=== PATIENT | male | born 1985 | race Caucasian/White ===

== ENCOUNTER 2019-10-20 23:55 | Emergency (ER) | payer BC ==
[2019-10-21] MEDS ORDERED: ACETAMINOPHEN 500 MG TABLET PO ONE (00:02)
[2019-10-21] MEDS ORDERED: 0.9 % SODIUM CHLORIDE 1,000 ML BAG IV ONE (00:03)
--- NOTE | 2019-10-21 00:08 | Emergency Department Record ---
History of Present Illness - General Chief Complaint: Palpitations Stated Complaint: PALPITATIONS Time Seen by Provider: 10/21/19 00:01 Source: Patient Mode of Arrival: EMS Limitations: No limitations - History of Present Illness Initial Comments: 34 yo male presents with palpitations. The patient states he felt normal throughout the day. He went out this even. He had a [employer] power drink prior to going out. He had three bears socializing tonight. On his way home he developed some headache, upset stomach, and a feeling of a few rapid heart jeff ts. He got home and relaxed and felt like he was having a rapid heart rate. He has a mild cough. He denies any underlying medical history. No known cardiac disease. No syncope. No premature disease in the family. No sudden cardiac in the family. He reports he had a Holter monitor last year in [place]. He was told it was normal. MD Complaint: Palpitations, "Skipped beats" -: Hour(s) Context: Occurred during rest Arrythmia History: Other (History of palpitations) Associated Symptoms: Denies other symptoms - Related Data Home Medications Medication Instructions Recorded Confirmed Last Taken No Home Med [NO HOME MEDS] 10/20/19 10/20/19 Unknown Allergies Allergy/AdvReac Type Severity Reaction Status Date / Time No Known Drug Allergies Allergy Verified 10/20/19 23:57 Review of Systems Constitutional: Denies: Chills, Fever, Malaise, Weakness Eyes: Denies: Eye discharge ENT: Reports: Congestion Respiratory: Reports: Cough (mild) Cardiovascular: Reports: Palpitations. Denies: Chest pain, Dyspnea on exertion, Edema, Syncope Endocrine: Denies: Fatigue, Polydipsia, Polyuria Gastrointestinal: Reports: Abdominal pain. Denies: Diarrhea, Nausea, Vomiting Genitourinary: Denies: Dysuria, Frequency, Hematuria Musculoskeletal: Denies: Arthralgia, Back pain, Myalgia Skin: Denies: Bruising, Change in color Neurological: Denies: Confusion, Headache, Numbness, Weakness Psychiatric: Denies: Anxiety Hematological/Lymphatic: Denies: Easy bleeding, Easy bruising Physical Exam - General General Appearance: Alert, Oriented x3, Cooperative, No acute distress Limitations: No limitations - Head Head exam: Atraumatic, Normal inspection - Eye Eye exam: Normal appearance, PERRL. negative: Conjunctival injection, Scleral icterus - ENT ENT exam: Normal exam, Mucous membranes moist, Normal external ear exam Ear exam: Normal external inspection Nasal Exam: Normal inspection Mouth exam: Normal external inspection - Neck Neck exam: Normal inspection - Respiratory Respiratory exam: Normal lung sounds bilaterally. negative: Accessory muscle use, Decreased breath sounds, Prolonged expiratory, Rhonchi, Stridor, Wheezes - Cardiovascular Cardiovascular Exam: Normal rhythm, Tachycardia (HR about 100-105). negative: Diastolic murmur, Irregular rhythm, Systolic murmur Peripheral Pulses: 2+: Radial (R), Radial (L) - GI/Abdominal GI/Abdominal exam: Soft. negative: Tenderness - Rectal Rectal exam: Deferred - exam: Deferred - Extremities Extremities exam: Normal inspection. negative: Pedal edema, Tenderness - Back Back exam: Denies: CVA tenderness (R), CVA tenderness (L) - Neurological Neurological exam: Alert, Oriented X3. negative: Altered, Motor sensory deficit - Psychiatric Psychiatric exam: Normal affect, Normal mood. negative: Agitated, Anxious - Skin Skin exam: Dry, Intact, Normal color, Warm Course Vital Signs 10/21/19 00:01 Temperature 100.2 F H Pulse Rate [ 92 H [employer] ] Respiratory 20 Rate Blood Pressure 136/87 [Right Arm] Pulse Ox 100 - Reevaluation(s) Reevaluation #1: 10/21/19 00:14 EKG #1: 00:05 Rate: 103 Rhythm: sinus with a single PVC Rowdy: normal Intervals: normal ST segments: no acute abnormalities Prior: EMS EKG at 23:34 sinus rhythm rate 121, normal intervals, normal axis, normal ST segments, otherwise normal 10/21/19 00:14 10/21/19 00:17 The CBC is normal 10/21/19 00:34 The CMP was reviewed The K is normal but on the lower side. Given the PVC on the EKG, KCL was ordered while monitoring. The magnesium is normal 10/21/19 00:35 The Troponin and calcium are normal The Influenza are normal (Checked due to low grade temperature and cough) 10/21/19 00:52 The CXR was read as normal. No enlargement. Resting comfortably. No symptoms. HR 85. No current signs of PVCs 10/21/19 01:16 TSH is normal 10/21/19 01:34 No complaints. NSR. No ectopy, no PVCs. rate 82. 10/21/19 02:57 The repeat troponin is normal The patient will be referred as an outpatient to the cardiology clinic We discussed avoid caffeine, close follow up and reasons for immediate return to the ED Medical Decision Making - Lab Data Result diagrams: 10/21/19 00:07 10/21/19 00:07 Disposition Disposition: Discharge Clinical Impression: Palpitations, PVC (premature ventricular contraction) Disposition: Home, Self-Care Condition: (1) Good Instructions: Heart Palpitations (ED) Additional Instructions: Review this ER visit and the tests performed with your family doctor Call your doctor for the next available follow up appointment Return to the ER for a recheck immediately if worse, any new concerns or questions You have been referred to the Cardiology Clinic at [facility] for the palpitations Avoid caffeine Referrals: Romina Perdue M.D. [MEDICAL DOCTOR] - [facility] Specialty Clin[facility] [Provider Group] Forms: Patient Portal Access Time of Disposition: 02:58 Quality - Quality Measures Quality Measures: N/A - Blood Pressure Screening Does Patient Have Any of the Following: No Blood Pressure Classification: Pre-Hypertensive BP Reading Systolic Measurement: 136 Diastolic Measurement: 87 Screening for High Blood Pressure: < Pre-Hypertensive BP, F/U Documented > [[id number]] Pre-Hypertensive Follow-up Interventions: Referral to alternative/primary care provider.
[2019-10-21 00:14] LABS: ABSOLUTE NEUTROPHIL COUNT 4.71; BASO % 0.3 % (0-6); EOS % 0.8 % (0-6); GRAN % 60.8 % (47-80); HEMATOCRIT 40.5 % (42.0-52.0); HEMOGLOBIN 13.2 gm/dl (14.0-18.0); LYMPH % 23.5 % (16-45); MEAN CELL VOLUME 83.7 fl (81-97); MEAN CORPUSCULAR HGB CONC 32.6 g/dl (32-36); MEAN PLATELET VOLUME 9.8 fl (7.4-10.4); MONO % 14.6 % (0-9); PLATELET COUNT 261 K/uL (130-400); RED BLOOD COUNT 4.84 M/uL (4.40-5.70); RED CELL DISTRIBUTION WIDTH 14.1 % (11.5-14.5); WHITE BLOOD COUNT W/O DIFF 7.7 K/uL (4.2-12.2)
[2019-10-21 00:15] LABS: MEAN CORPUSCULAR HEMOGLOBIN 27.2 pg (27-33)
[2019-10-21 00:23] LABS: BLOOD UREA NITROGEN 20 mg/dL (6-20); EST GLOMERULAR FILTRATION RATE > 60 mL/min
[2019-10-21 00:26] LABS: GLUCOSE,RANDOM 99 mg/dL (74-109)
[2019-10-21 00:28] LABS: INFLUENZA A NEGATIVE (NEGATIVE); INFLUENZA B NEGATIVE (NEGATIVE)
--- NOTE | 2019-10-21 00:33 | RADIOLOGY REPORT ---
EXAMINATION: Two View Chest Radiographs EXAM DATE: 10/21/2019 12:29 AM TECHNIQUE: Frontal and lateral views INDICATION: cough palpitations COMPARISON: None ENCOUNTER: Not applicable FINDINGS: The heart, mediastinum, and pulmonary vasculature are normal. No lung consolidation or pleural effu sions are present. IMPRESSION: No acute pulmonary disease process Dictated by: Rani Erickson DO on 10/21/2019 12:30 AM. .
[2019-10-21] MEDS ORDERED: SOD CHLOR 0.9% WITH KCL 40MEQ 40 MEQ/1,000 ML IV.SOLN IV ONE (00:34)
[2019-10-21 00:39] LABS: THYROID STIMULATING HORMONE 1.98 uIU/mL (0.270-4.20)
== END 2019-10-21 03:08 | disposition home or self-care (01) ==
LOC: ER 23:55
DX: I49.3 Ventricular premature depolarization (principal); R51 Headache; R05 Cough
CPT/HCPCS: 71046; 80048; 83735; 84443; 84484; 85025; 87400; 93005; 93010; 96365; 96366; 99284; J7030